=== PATIENT | male | born 1960 | race Caucasian/White ===

== ENCOUNTER 2018-09-19 14:14 | Observation (INO) | payer MEDICAID ==
[~2018-09-19] VITALS: Ht 182.9 cm; Wt 81.0 kg
[2018-09-19 15:00] LABS: BASOPHILS # (AUTO) 0.02 x10^3/uL (0-0.1); BASOPHILS % (AUTO) 0 % (0-1); EOSINOPHILS # (AUTO) 0.07 x10^3/uL (0-0.4); EOSINOPHILS % (AUTO) 1 % (1-7); LYMPHOCYTES # (AUTO) 1.93 x10^3/uL (1-3.4); LYMPHOCYTES % (AUTO) 36 % (22-44); MD NO; MEAN CORPUSCULAR HEMOGLOBIN 30.2 pg (27.5-34.5); MEAN CORPUSCULAR HGB CONC 33.6 g/dL (33.2-36.2); MEAN CORPUSCULAR VOLUME 89.9 fL (81-97); MEAN PLATELET VOLUME 8.2 fL (7.4-10.4); MONOCYTES % (AUTO) 9 % (2-9); NEUTROPHILS # (AUTO) 2.89 x10^3/uL (1.8-6.8); NEUTROPHILS % (AUTO) 54 % (42-75); PLATELET COUNT 253 x10^3/uL (130-400); RED BLOOD COUNT 5.14 x10^6/uL (4.38-5.82); RED CELL DISTRIBUTION WIDTH 13.6 % (9.4-14.8)
[2018-09-19 15:06] LABS: ALANINE AMINOTRANSFERASE 37 U/L (12-78); ANION GAP 5 mmol/L (5-15); CHLORIDE 109 mmol/L (98-107)
[2018-09-19 15:10] LABS: ALKALINE PHOSPHATASE 110 U/L (45-117); BILIRUBIN,TOTAL 0.4 mg/dL (0.2-1.0); TOTAL PROTEIN 8.1 g/dL (6.4-8.2); TROPONIN I < 0.015 ng/mL (0.000-0.045)
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
[2018-09-19] MEDS ORDERED: FAMOTIDINE 20 MG TABLET ONE (15:58)
[2018-09-19] MEDS ORDERED: MAALOX/HYOSCYAMINE/LIDOCAINE 45 ML BTL ONE (15:58)
[2018-09-19] MEDS ORDERED: ONDANSETRON ODT 4 MG ONE (15:58)
[2018-09-19] MEDS ORDERED: MAALOX/HYOSCYAMINE/LIDOCAINE 45 ML BTL PO ONE (16:00)
[2018-09-19] MEDS ORDERED: ONDANSETRON ODT 4 MG PO ONE (16:00)
[2018-09-19] MEDS ORDERED: FAMOTIDINE 20 MG TABLET PO ONE (16:00)
--- NOTE | 2018-09-19 16:03 | NUR ---
Dr. Vneegas at bedside to discuss ED findings and POC.
--- NOTE | 2018-09-19 16:30 | NUR ---
PIV started, pt aware of plan to admit. Pt resting on gurandreea, states that he no longer feels "queezy in the stomach" but still has the epigastric pain and describes it as moderate.
--- NOTE | 2018-09-19 17:24 | NUR ---
Pt resting on gurney. Pt aware of plan to be admitted to floor, and pt made aware that we currently do not have a bed, but will notify him as soon we have a bed.
--- NOTE | 2018-09-19 17:25 | NUR ---
Dr. Lunsford at bedside to evaluate pt for admission.
[2018-09-19] MEDS ORDERED: hydrALAzine 20 MG/ML, 1ML IVPush PRN (18:00)
[2018-09-19] MEDS ORDERED: DOCUSATE 100 MG CAPSULE PO PRN (18:00)
[2018-09-19] MEDS ORDERED: POLYETHYLENE GLYCOL 17 GM PACKET PO PRN (18:00)
[2018-09-19] MEDS ORDERED: LABETALOL 5MG/ML, 20ML IVPush PRN (18:00)
[2018-09-19] MEDS ORDERED: BISACODYL 10 MG SUPP PR PRN (18:00)
[2018-09-19 18:23] LABS: D-DIMER 0.31 ug/mlFEU (0.00-0.52); INTERNATIONAL NORMALIZED RATIO 0.97 (0.93-1.1); PROTHROMBIN TIME 10.2 Seconds (9.6-11.5)
[2018-09-19 18:41] LABS: FREE T4 (FREE THYROXINE) 1.18 ng/dL (0.76-1.46); THYROID STIMULATING HORMONE 1.38 mIU/L (0.358-3.740)
[2018-09-19 19:43] VITALS: BP 139/87
[2018-09-19] MEDS: HEPARIN 5,000 UNITS/ML, 1ML SQ SCH (19:47)
[2018-09-19] MEDS: SODIUM CHLORIDE 0.9% 1,000 ML IV SCH (19:47)
[2018-09-19 20:30] VITALS: BP_SYST 128; BP_SYST 139; BP_DIAS 87
[2018-09-19 20:32] VITALS: BP 120/74
[2018-09-19 20:34] VITALS: BP 122/85
[2018-09-20] VITALS (9 sets, daily range): BP systolic 76–126; BP diastolic 50–81
[2018-09-20 01:22] LABS: AMPHETAMINE SCREEN, URINE Positive (Negative); BARBITURATE SCREEN, URINE Negative (Negative); BENZODIAZEPINE SCREEN, URINE Negative (Negative); CANNABINOID SCREEN, URINE Positive (Negative); COCAINE SCREEN, URINE Negative (Negative); METHADONE SCREEN, URINE Negative (Negative); OPIATE SCREEN, URINE Negative (Negative)
[2018-09-20] MEDS: HEPARIN 5,000 UNITS/ML, 1ML SQ SCH ×3 (02:49→18:19)
[2018-09-20] MEDS: NICOTINE 14MG/24 HR PATCH.TD24 TD SCH (02:49)
[2018-09-20] MEDS: SODIUM CHLORIDE 0.9% 1,000 ML IV SCH ×3 (04:12→18:19)
[2018-09-20 05:22] LABS: BASOPHILS # (AUTO) 0.03 x10^3/uL (0-0.1); BASOPHILS % (AUTO) 1 % (0-1); EOSINOPHILS % (AUTO) 2 % (1-7); LYMPHOCYTES # (AUTO) 2.12 x10^3/uL (1-3.4); LYMPHOCYTES % (AUTO) 43 % (22-44); MD NO; MEAN CORPUSCULAR HEMOGLOBIN 30.1 pg (27.5-34.5); MEAN CORPUSCULAR HGB CONC 33.2 g/dL (33.2-36.2); MEAN CORPUSCULAR VOLUME 90.7 fL (81-97); MEAN PLATELET VOLUME 8.7 fL (7.4-10.4); MONOCYTES # (AUTO) 0.46 x10^3/uL (0.2-0.8); MONOCYTES % (AUTO) 9 % (2-9); NEUTROPHILS # (AUTO) 2.19 x10^3/uL (1.8-6.8); NEUTROPHILS % (AUTO) 45 % (42-75); PLATELET COUNT 209 x10^3/uL (130-400); RED BLOOD COUNT 4.64 x10^6/uL (4.38-5.82); RED CELL DISTRIBUTION WIDTH 13.6 % (9.4-14.8)
[2018-09-20 05:27] LABS: CHLORIDE 112 mmol/L (98-107)
[2018-09-20 05:41] LABS: ALANINE AMINOTRANSFERASE 29 U/L (12-78); ALBUMIN 3.2 g/dL (3.4-5.0); ALKALINE PHOSPHATASE 91 U/L (45-117); ANION GAP 6 mmol/L (5-15); BILIRUBIN,TOTAL 0.4 mg/dL (0.2-1.0); CALCIUM 8.3 mg/dL (8.5-10.1); CHOL/HDL RATIO 3.8; CHOLESTEROL, TOTAL 128 mg/dL (140-239); CREATININE 1.04 mg/dL (0.7-1.3); HDL CHOL % 27 % (26-37); HDL CHOLESTEROL (DIRECT) 34 mg/dL (40-60); LDL CHOLESTEROL,CALCULATED 80 mg/dL (54-169); LDL/HDL RATIO 2.4 (0.5-3.0); TOTAL PROTEIN 6.6 g/dL (6.4-8.2); TRIGLYCERIDES 71 mg/dL (50-200); VLDL CHOLESTEROL 14 mg/dL (0-25)
[2018-09-20 12:57] LABS: TROPONIN I < 0.015 ng/mL (0.000-0.045)
[2018-09-20] MEDS: ACETAMINOPHEN 325 MG TABLET PO PRN ×2 (16:02→20:27)
[2018-09-20 17:18] LABS: TROPONIN I < 0.015 ng/mL (0.000-0.045)
[2018-09-21] MEDS: HEPARIN 5,000 UNITS/ML, 1ML SQ SCH (02:20)
[2018-09-21] MEDS: NICOTINE 14MG/24 HR PATCH.TD24 TD SCH (02:23)
[2018-09-21] MEDS: SODIUM CHLORIDE 0.9% 1,000 ML IV SCH (02:30)
[2018-09-21 05:06] LABS: ANION GAP 5 mmol/L (5-15); CALCIUM 8.6 mg/dL (8.5-10.1); CHLORIDE 116 mmol/L (98-107); CREATININE 0.89 mg/dL (0.7-1.3)
[2018-09-21 06:15] LABS: BASOPHILS # (AUTO) 0.03 x10^3/uL (0-0.1); BASOPHILS % (AUTO) 1 % (0-1); EOSINOPHILS # (AUTO) 0.06 x10^3/uL (0-0.4); EOSINOPHILS % (AUTO) 2 % (1-7); LYMPHOCYTES # (AUTO) 1.32 x10^3/uL (1-3.4); LYMPHOCYTES % (AUTO) 45 % (22-44); MD SCAN; MEAN CORPUSCULAR HEMOGLOBIN 30.8 pg (27.5-34.5); MEAN CORPUSCULAR HGB CONC 34.3 g/dL (33.2-36.2); MEAN CORPUSCULAR VOLUME 89.8 fL (81-97); MEAN PLATELET VOLUME 9.3 fL (7.4-10.4); MONOCYTES # (AUTO) 0.21 x10^3/uL (0.2-0.8); MONOCYTES % (AUTO) 7 % (2-9); NEUTROPHILS # (AUTO) 1.33 x10^3/uL (1.8-6.8); NEUTROPHILS % (AUTO) 45 % (42-75); PLATELET COUNT 51 x10^3/uL (130-400); RED BLOOD COUNT 3.67 x10^6/uL (4.38-5.82); RED CELL DISTRIBUTION WIDTH 13.2 % (9.4-14.8)
== END 2018-09-21 08:24 | disposition left against medical advice (07) ==
LOC: ED 16:07 → EDIP 16:08 → INTOOBSV 16:08 → ED 16:33 → 5SO 19:25
PROVIDERS: ADMIT Hospitalist; ATTEND Hospitalist
DX: R07.89 Other chest pain (principal); N40.0 Benign prostatic hyperplasia without lower urinary tract symptoms; J06.9 Acute upper respiratory infection, unspecified; R42 Dizziness and giddiness; R55 Syncope and collapse; M79.89 Other specified soft tissue disorders; Z80.1 Family history of malignant neoplasm of trachea, bronchus and lung; Z80.51 Family history of malignant neoplasm of kidney; Z82.3 Family history of stroke; Z87.891 Personal history of nicotine dependence; Z23 Encounter for immunization
CPT/HCPCS: 36415; 70450; 71045; 80048; 80053; 80061; 80307; 83690; 83735; 83880; 84439; 84443; 84484; 85025; 85379; 85610; 90471; 90656; 93005; 93306; 93880; 93970; 96360; 96361; 96372; 99284; G0378; J1644; J7030; Q0162